=== PATIENT | female | born 1975 | race African-American/Black ===

== ENCOUNTER 2019-03-27 16:35 | Day surgery (SDC) | payer BC ==
[2019-03-27] MEDS ORDERED: IRON SUCROSE INJECTION 200 MG in SODIUM CHLORIDE 100 ML IVPB ONE (17:30)
[2019-03-27 17:53] VITALS: BP 124/67; PULSE 72; TEMP 97.6
== END 2019-03-27 18:00 | disposition home or self-care (01) ==
LOC: FINFUSION 16:35
PROVIDERS: ATTEND Internal Medicine Hematology & Oncology
PROC: 3E033GC Introduction of Other Therapeutic Substance into Peripheral Vein, Percutaneous Approach (ICD-10-PCS; principal; 2019-03-27)
DX: T80.89XA Other complications following infusion, transfusion and therapeutic injection, initial encounter (principal); Y84.8 Other medical procedures as the cause of abnormal reaction of the patient, or of later complication, without mention of misadventure at the time of the procedure; Y92.9 Unspecified place or not applicable
CPT/HCPCS: 96365; J1756

== ENCOUNTER 2019-04-02 17:22 | Day surgery (SDC) | payer BC ==
[~2019-04-02 17:22] MED LIST: IRON SUCROSE INJECTION 200 MG in SODIUM CHLORIDE 100 ML IVPB ONE
[2019-04-02 19:12] VITALS: BP 126/67; PULSE 72
== END 2019-04-02 19:12 | disposition home or self-care (01) ==
LOC: FINFUSION 17:22 → FM/S 17:26 → FINFUSION 19:12
PROVIDERS: ATTEND Internal Medicine Hematology & Oncology
PROC: 3E033GC Introduction of Other Therapeutic Substance into Peripheral Vein, Percutaneous Approach (ICD-10-PCS; principal; 2019-04-02)
DX: D64.9 Anemia, unspecified (principal)
CPT/HCPCS: 96365; J1756

== ENCOUNTER 2019-04-08 17:50 | Day surgery (SDC) | payer BC | END 2019-04-08 18:57 | disposition home or self-care (01) | LOC: FINFUSION 17:50 → FM/S 17:55 → FINFUSION 18:57 | DX: D64.9 Anemia, unspecified (principal) ==

== ENCOUNTER 2019-04-24 18:30 | Day surgery (SDC) | payer BC ==
[2019-04-24] MEDS ORDERED: IRON SUCROSE INJECTION 200 MG in SODIUM CHLORIDE 100 ML IVPB ONE (19:45)
[2019-04-24 20:22] VITALS: TEMP 97.5
[2019-04-24 20:53] LABS: HEMATOCRIT 31.7 % (32.4-45.2); HEMOGLOBIN 9.8 GM/dl (10.7-15.3); MCH 22.9 pg (25.7-33.7); MEAN CELL VOLUME 73.9 fl (80-96); MEAN PLT VOLUME 8.9 fl (7.5-11.1); PLATELET COUNT 302 K/MM3 (134-434); RBC 4.29 M/mm3 (3.60-5.2); WHITE BLOOD COUNT 4.7 K/mm3 (4.0-10.8)
[2019-04-24 21:29] VITALS: BP 110/67; PULSE 79
[2019-04-24 22:17] LABS: IRON SERUM 50 ug/dL (50-175); TOTAL IRON BINDING CAPACITY 378 ug/dL (250-450)
== END 2019-04-24 21:32 | disposition home or self-care (01) ==
LOC: FINFUSION 18:30
PROVIDERS: ATTEND Internal Medicine Hematology & Oncology
PROC: 3E033GC Introduction of Other Therapeutic Substance into Peripheral Vein, Percutaneous Approach (ICD-10-PCS; principal; 2019-04-24)
DX: D64.9 Anemia, unspecified (principal)
CPT/HCPCS: 36415; 82728; 83540; 83550; 85027; 96365; J1756